=== PATIENT | male | born 1945 | race Caucasian/White ===

== ENCOUNTER → 2020-05-20 | Outpatient (CLI) | payer MEDICARE, OTHER ==
[~2020-05-20] MED LIST: BENAZEPRIL HCL20 MG PO; ELIQUIS5 MG PO; GLUCOSAMINE &1 EACH PO; HYDROCHLOROTHIA25 M2 PO; INVOKANA300 MG PO; LOPRESSOR50 PO; NORVASC 2.5 MG2.5 M1 PO; PREVAGEN; SPIRONOLACTONE25 MG PO; TAMSULOSIN HCL0.4 MG PO; VITAMIN B-12100 MC1 PO; ZOCOR20 MG PO
[2020-05-20 11:05] LABS: ABSOLUTE BASOPHILS 0.1 thou/uL (0.0-0.2); ABSOLUTE EOSINOPHILS 0.5 thou/uL (0.0-0.7); ABSOLUTE LYMPHOCYTES 2.4 thou/uL (0.8-5.3); ABSOLUTE MONOCYTES 0.9 thou/uL (0.0-1.2); ABSOLUTE NEUTROPHILS 3.6 thou/uL (1.6-8.1); HEMATOCRIT 44.2 % (42.0-52.0); HEMOGLOBIN 14.7 gm/dL (14.0-18.0); LYMPHOCYTES 32.4 %; MCH 31.4 pg (26.0-34.0); MCHC 33.3 g/dL (28.0-37.0); MCV 94.2 fL (80.0-100.0); MONOCYTES 12.4 %; MPV 8.2 fl. (7.2-11.1); NUCLEATED RBCS 0 /100WBC; PLATELET COUNT* 219 thou/uL (150-400); POLYS 48.2 %; RBC 4.69 mil/uL (4.50-6.00); RDW-CV 13.3 % (10.5-14.5); WBC 7.5 thou/uL (4.0-11.0)
[2020-05-20 11:15] LABS: ALBUMIN 3.9 g/dL (3.4-5.0); APTT 29.8 Seconds (25.0-31.3); CALCIUM 9.6 mg/dL (8.5-10.1); CREATININE 0.9 mg/dL (0.6-1.3); POTASSIUM 4.5 mmol/L (3.5-5.1); PROTIME 10.7 Seconds (9.20-11.50); TOTAL BILIRUBIN 0.6 mg/dL (<0.1-1.0)
[2020-05-20 12:10] LABS: ESR (SEDRATE) 6 mm/hr (0-20)
[2020-05-21 05:07] LABS: GLYCOHEMOGLOBIN (HGB A1C) 6.4 % (4.8-5.6)
== END ==
LOC: M.LAB 07:01
PROVIDERS: ATTEND Orthopaedic Surgery
DX: Z01.812 Encounter for preprocedural laboratory examination (principal); Z20.828 Contact with and (suspected) exposure to other viral communicable diseases; M17.11 Unilateral primary osteoarthritis, right knee

== ENCOUNTER 2020-05-29 09:04 | Observation (INO) | payer MEDICARE, OTHER ==
--- NOTE | 2020-05-20 13:29 | EKG ---
[place] [address] ELECTROCARDIOGRAM REPORT Name: ENRIQUE MAR Room: [facility]#: [id number] Admission: Attend Phys: Rachid Bentley DO Discharge: Date of : 41 Date of Service: 05/20/20 1137 Report #: [id number] THIS REPORT FOR: //name// [facility] Test Date: 2020-05-20 Test Time: 11:37:36 Pat Name: ENRIQUE MAR Department: Room: Gender: Apricot Washer: : 1945 Requested By: Rachid Bentley Order Number: [id number] Reading MD: Aditya Lowry Measurements Intervals [place] Rate: 57 P: IN: QRS: -38 QRSD: 173 T: 93 QT: 512 QTc: 499 Interpretive Statements Atrial fibrillation Ventricular premature complex Left bundle branch block Compared to ECG 01/23/2007 12:06:23 Left bundle-branch block now present Atrial premature complex(es) no longer present Aberrant conduction of supraventricular beat(s) no longer present Electronically Signed On 05-20-2020 13:28:47 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
[~2020-05-29] VITALS: Ht 182.9 cm; Wt 104.3 kg
[2020-05-29 09:45] VITALS: BP 143/72
[2020-05-29 09:49] LABS: PROTIME 10.2 Seconds (9.20-11.50)
[2020-05-29 15:38] VITALS: BP 118/55
--- NOTE | 2020-05-29 18:04 | NUR ---
A&OX 4, PWD. VERY [place]. LUNGS CLEAR, HEART TONES REGULAR. + BS X 4 QUADS. PEDAL PULSES PRESENT. -2 ON AT 3L PER NC. CAPNO ON PT AT 34 AND 02 SAT 96% ON 3L. RIGHT ANTERIOR HIP DRESSING C,D & I. NABIL. TEDS AND CALF SCD'S ON NABIL LEGS. IC TO HIP. 1/2 NS INFUSING AT 80MLS/HR LEFT FA. NO C/O PAIN. CALL LIGHT WITHIN REACH. WILL CONTINUE TO MONITOR.
--- NOTE | 2020-05-29 18:18 | OP ---
[address] [address] OPERATIVE REPORT Name: ENRIQUE MAR Room: [address] M.RLuis#: [id number] Admission: 05/29/20 Attend Phys: Rachid Bentley DO Discharge: Date of : 41 Report #: [id number] THIS REPORT FOR: //name// cc: Yoandy Fernando MD, Matthew D MD ~ CC: Yoandy Bentley DICTATED BY: Eduard Nicholson DO DATE OF SERVICE: 05/29/2020 PREOPERATIVE DIAGNOSIS: Severe degenerative joint disease, right hip. POSTOPERATIVE DIAGNOSIS: Severe degenerative joint disease, right hip. PROCEDURE PERFORMED: Right total hip arthroplasty with a Dayna Biomet total hip system with the following components listed in numbered format: 1. A size 17 distally reduced full length Taperloc femoral stem. 2. A size 60 mm 3 hole finned acetabular shell, a size 40 x 60 mm high wall polyethylene liner and two 6.5 x 30 mm self-tapping bone screws and one 6.5 x 25 mm self-tapping bone screws. 3. A 40 mm Biolox ceramic head. 4. A +3 mm neck adapter. SURGEON: Rachid Bentley DO OYSTER WORKER: 1. Eduard Nicholson DO 2. Eduard Matt DO ANESTHESIA: General with local field supplementation. DRAINS: None. SPECIMENS: None. COMPLICATIONS: None. ANTIBIOTICS: 2 g of Ancef given IV 1 hour prior to incision. ESTIMATED BLOOD LOSS: 300 mL. DISPOSITION: PACU to medical surgical floor. INDICATIONS FOR SURGERY: The patient is a pleasant 75-year-[place] [address] OPERATIVE REPORT Name: ENRIQUE MAR Room: [address] M.R.#: [id number] Admission: 05/29/20 Attend Phys: Rachid Bentley DO Discharge: Date of : 41 Report #: [id number] ongoing right hip pain and weakness whenever he has been ambulating or standing from a seated position. This has been refractory to conservative measures for greater than 3 months and he was subsequently diagnosed with a right hip severe degenerative joint disease. He was subsequently recommended to undergo a right total hip arthroplasty; therefore, the risks, benefits, treatment options, alternatives, and indications were discussed with the patient. Risks include but not limited to damage to surrounding neurovascular structures, continued pain, continued bleeding, need for repeat surgery, wound dehiscence, infection, DVT, PE, as well as inherent complications of anesthesia. The patient assumed the risks and wished to proceed with surgery. DESCRIPTION OF PROCEDURE: The patient was seen in the preoperative holding area where consent was obtained and signed. Right lower extremity was marked and initialed. The patient was transferred back to the operative suite, placed supine on operating room table. He was given the benefit of general anesthetic and then bilateral lower extremities were placed into the well-padded leg rocha boots and then placed into the appropriate leg spars. He was secured to the table with a belt and placed against a well-padded perineal post. All bony prominences were well-padded. Right lower extremity was sterilely prepped with a Hibiclens scrub followed by alcohol rinse and then ChloraPrep x 2 and then draped free in normal sterile fashion. Timeout was then held indicating appropriate patient, procedure to be performed, operative site, upper surgeon, preoperative antibiotics and all in attendance were in agreeance. Next, surgery began with an incision approximately 8 cm in length the tensor fascia lilli muscle extending longitudinally with a 10 blade scalpel through the skin and subcutaneous tissues. Sharp dissection was carried down to the level of the tensor fascia. Tensor fascia was then incised just anterior to the bracelet maker novelty longitudinally with the incision. Then, the tensor fascia muscle was freed off the medial tensor fascia. The dissection was then carried out through the inferior aspect of the tensor fascia until identification of the lateral femoral circumflex vessels were identified. They were then cauterized with Aquamantys and then electrocautery. At which point, the capsule of the femoral neck was then able to be identified and it was framed with the 7 and 6 retractors. Next, a capsulectomy was then subsequently performed and then the retractor was then placed intracapsularly. Next, femoral neck osteotomy was then subsequently performed with the oscillating saw, beginning at this ____ and then extending approximately 1 cm superior to the lesser trochanter and then a napkin ring cut was subsequently made. Femoral neck and femoral head were then subsequently removed and then the appropriate retractors were then placed around the acetabulum and then the remaining capsule and labrum were then subsequently excised, as well as pulvinar tissue. Next, sequential reaming was then carried out with final reaming performed under fluoroscopy with a size 59 mm acetabular reamer. This was driven to the appropriate depth and position followed by a thorough irrigation and vancomycin powder was then sprinkled on to the back side of a 60 mm acetabular shell. The final shell was then malleted into appropriate position and then checked with a [place] [address] OPERATIVE REPORT Name: ENRIQUE MAR Room: [address]#: [id number] Admission: 05/29/20 Attend Phys: Rachid Bentley DO Discharge: Date of : 41 Report #: [id number] fluoroscopy until it was fully seated. Then, 3 bone screws were then subsequently placed of the aforementioned sizes followed by placement of the manhole cover. Acetabular shell was then thoroughly irrigated and then final 40 mm high wall liner was then placed in appropriate position and malleted until fully seated. Next, femur was then externally rotated to approximately 120 degrees and the appropriate retractors were placed as well as the femoral bone lift was placed in appropriate position. A capsule was then cleared off the medial aspect of the neck and then the femur was then lowered to the floor and adducted. The appropriate releases were made on the greater trochanter as well as removal of the remnant of the superior capsule. Once adequate visualization was able to be obtained, a box osteotome was then placed in appropriate position followed by rattail rasp and then sequential broaching was subsequently performed up to a size 17 stem. Trial head and neck combination was then performed with reduction of the hip and then the hip was then taken through a range of motion and stability testing confirmed to be fully stable. ____ leg lengths were checked on fluoroscopy and determined to be appropriate. Hip was then dislocated and trial implants were subsequently removed. Femoral canal was thoroughly irrigated and vancomycin powder was introduced into the wound. A final stem was then malleted into the femur and fully seated. A 40 mm head with a +3 neck adapter was then malleted on to a cleansed and dried trunnion. It was seated then tested with two finger tug. A final reduction was then subsequently performed and then final C-arm images were then subsequently taken. The hip was then thoroughly irrigated and then pericapsular cocktail was then subsequently injected. A capsule was then closed utilizing #1 Stratafix in a simple running fashion followed by subcutaneous fat closure with #1 Stratafix. Then, skin closure with 2-0 Monocryl in an inverted interrupted subcuticular stitches followed by running 3-0 Stratafix subcuticular stitch and then skin glue and Mepilex dressing. The patient was then transferred back to PACU in normal stable condition. Sponge and needle counts were correct x 2. Dr. Bentley was present for all critical aspects of the case. <ELECTRONICALLY SIGNED> By: Rachid Bentley DO 05/29/20 1818 [id number] [id number] Bentley DO /nt
[2020-05-29 20:00] VITALS: BP 125/69
[2020-05-30] VITALS (8 sets, daily range): BP systolic 90–142; BP diastolic 43–70
[2020-05-30 04:28] LABS: HEMATOCRIT 37.9 % (42.0-52.0); HEMOGLOBIN 12.8 gm/dL (14.0-18.0)
--- NOTE | 2020-05-30 07:48 | NUR ---
Alert and oriented x 4. Rt anterior hip dressing is island mepilex and it dry and intact. He is voiding well per urinal. He had pain meds x 2 this shift. O2 at 3L n/c and capno monitor, it hasn't alarmed. He has slept well.
[2020-05-30] MEDS ORDERED: OXYCODONE HCL 55 MG PO (12:31)
[2020-05-30] MEDS ORDERED: COLACE 100 MG100 MG PO (12:31)
--- NOTE | 2020-05-30 14:24 | NUR ---
Pt is A&O. Resides at home with his . Independent. No DME. No hx of HH or SNF. Pt plans to return home at dc, Pt states that he will take the outpt therapy order with him at dc and arrange post dc if he needs it, CM updated nurse. Anticipate dc today post working with therapy. CMRN to call in Eliquis prescription.
--- NOTE | 2020-05-30 14:40 | NUR ---
SPOKE WITH PT.AND . HE STATED HE TAKES ELQUIS AT HOME. HAS A FRONT WHEEL WALKER FROM HOME AT BEDSIDE. EXPLAINED TO HIM THAT WILL SET UP OUTPT.THERAPY AFTER HIS 2 WEEK FOLLOW, UP IF HE FEELS HE NEEDS IT. HE SHOULD JUST GO HOME AND WALK INSIDE HIS HOUSE WITH WALKER AND DO ONLY EXERCISES THERAPY GAVE HIM TODAY.
--- NOTE | 2020-05-30 15:26 | NUR ---
PT DISCHARGED HOME WITH SELF DIRECTED THERAPY PER DR CERON. COPY OF DIASCHARGE PAPERWORK TO PT WITH EXPLAINATION. PT AND VERBALIZED UNDERSTANDING. PRESCRIPTION GIVEN TO PT. IV ACCESS REMOVED.
== END 2020-05-30 15:47 | disposition home or self-care (01) ==
LOC: M.PRE → M.3W 09:04 → M.TBA 09:04 → M.PRE 09:37 → M.3W 15:55
PROVIDERS: Orthopaedic Surgery; ADMIT Internal Medicine; ATTEND Internal Medicine
DX: M16.11 Unilateral primary osteoarthritis, right hip (principal); I10 Essential (primary) hypertension; E11.9 Type 2 diabetes mellitus without complications; I48.91 Unspecified atrial fibrillation; Z79.899 Other long term (current) drug therapy; Z20.828 Contact with and (suspected) exposure to other viral communicable diseases